=== PATIENT | female | born 1960 ===

== ENCOUNTER → 2021-06-21 | Outpatient (CLI) | payer OTHER ==
[~2021-06-21] MED LIST: AMLO-186 PO; BYSTOLIC2.5 MG PO; CYCL10TA2 PO; DULO20CA PO; ESZO3TAB28 PO; LORA2TAB89 PO; OXYC-325 PO; TRAZ300T2 PO
--- NOTE | 2021-06-21 12:39 | PDOC1 ---
INITIAL PAIN CONSULT DATE OF SERVICE: DOS: DATE: 06/21/21 TIME: 12:31 CHIEF COMPLAINT: Chief Complaint: Neck and left upper extremity pain HISTORY OF PRESENT ILLNESS: 61-year-old female presents with history of pain base the neck and left shoulder left upper extremity for about 3 years on and off in intensity patient reports no specific injury or accident that she is aware but had very active lifestyle over the years and is still active and weight lifting and exercise patient reports the pain is in the base the neck and the left shoulder left posterior deltoid scapular region into the forearm and into the hand with numbness and tingling in the thumb and first and second fingers on the left side patient reports extending more constant is aching and dull radiating numbness and tingling patient reports it wakes her from sleep least twice a night does not affect her bowel bladder control but does affect her ability walk occasionally patient reports has had trigger point injections also has had physical therapy and still doing therapy for this as well as massage therapies and does yoga 3 times a week with good stretching exercises as well patient is been taking ibup rofen which has not decreased the pain significantly also Percocet and that does decrease the pain to moderate extent patient has tried Tylenol as well which is not significantly decreasing the pain. Patient to continue to do the stretching strengthening and yoga as described. Patient reports her disability rating 0-10 10 being worst is a 7 with family home responsibilities recreation 6 with social activity 9 with occupation 5 with sexual behavior 8 with self-care activities and 6 with life support activities. Patient did have MRI scan of the cervical spine showing moderate to severe multilevel cervical spondylosis multilevel fac et arthrosis greatest at C4-5 and C5-6 with anterior subluxation of C5 on C6 disc base narrowing disc desiccation C4-5 C5-6 and C6-7 with left greater than right uncovertebral joint hypertrophy disc bulging causing effacement of the ventral thecal sac and narrowing the canal centrally at 9 mm left-sided neuroforaminal stenosis and effacement of the exiting left C6 nerve root at C5-6 level. C6-7 showing to space narrowing and disc osteophyte patient reports the pain is better with relaxing not using her left upper extremity such as avoiding reaching overhead or repetitive motions and weightbearing . Complex causing effacement of the ventral thecal sac. PAST MEDICAL HISTORY: PMH: Hypertension, Crohn's disease, gastroesophageal reflux, arthritis, kidney stones PREVIOUS SURGERIES: Past Surgical Hx: Appendectomy, left foot surgery, umbilical hernia repair x2, ureteral stents, bowel resection x2, partial thyroidectomy CURRENT MEDICATIONS: Current Meds: Active Scripts Medications Dose Route/Sig Max Daily Dose Days Date Category Cyclobenzaprine Hcl 10 Mg Tablet 1 Tab PO QHS 06/21/21 Reported Cymbalta (Duloxetine Hcl) 20 Mg Capsule.dr 1 Cap PO DAILY 06/21/21 Reported Ativan (Lorazepam) 2 Mg Tablet 2 Mg PO HS 06/21/21 Reported Bystolic (Nebivolol) 2.5 Mg Tablet 2.5 Mg PO DAILY 06/21/21 Reported Amlodipine Besylate 5 Mg Tablet 5 Mg PO DAILY 06/21/21 Reported Trazodone Hcl 300 Mg Tablet 1 Tab PO QHS 06/21/21 Reported Lunesta (Eszopiclone) 3 Mg Tablet 1 Tab PO PRN QHS PRN MDD 1 Tablet(s) 30 06/21/21 Reported Percocet 5-325 mg Tablet (Oxycodone HCl/Acetaminophen) 1 Each Tablet 1 Tab PO PRN TID PRN MDD 3 Tablet(s) 5 06/21/21 Reported ALLERGIES; Allergies: Coded Allergies: adalimumab (Verified Allergy, Severe, Head ache dizzyness, 06/21/21) infliximab (Verified Allergy, Severe, Anaphylaxis, 06/21/21) FAMILY HISTORY: Family Hx: Asthma COPD cancers ,diabetes, mental health issues SOCIAL HISTORY: Social Hx: Patient does not smoke does not drink not use any illegal illicit recreational drugs REVIEW OF SYSTEMS: ROS: Positive for those items mentioned in history of present illness, all systems are reviewed, otherwise negative ,and are complete full and well-documented on patient's chart. PHYSICAL EXAM: VS: Blood pressure is 154/107 pulse 87 respiration 16 temperature 98.7 F height is 60 inches weight is 223 pounds PE: PHYSICAL EXAMINATION: GENERAL: The patient is awake, alert, oriented, appropriate, very pleasant in demeanor HEENT: Shows normocephalic, atraumatic. Extraocular movements are intact and symmetrical. Oral cavity: Mucous membranes moist and pink. Dentition is intact. NECK: Shows anterior throat supple without palpable lymphadenopathy noted. Sw allow reflex symmetrical. CHEST: Shows normal on inspection. Breath sounds are clear bilaterally, distant but no rales rhonchi wheezes auscultated. HEART: Shows S1, S2 clear. No murmurs auscultated. ABDOMEN: Soft, nontender, nondistended, obese. No palpable organomegaly is noted. No rebound or guarding demonstrated. BACK: Shows spine grossly in the midline. Normal-appearing cervical lordotic curvature. Cervical paraspinous muscles show symmetrical with inspection, on palpation some moderate tenderness diffusely more in the left than the right inferior aspect of the cervical paraspinous muscles into the superior medial trapezius with very firm ropelike musculature in this region consistent with trigger point areas. Patient shows good rotation of motion of the cervical spine with significant tenderness with left lateral rotation as well as extension but not with forward flexion. Right side rotation is nontender. There is slightly increased thoracic kyphosis, some minor flattening of the lumbar lordotic curvature. EXTREMITIES: Upper extremities show deep tendon reflexes 2+ in the biceps and triceps tendons. Motor exam is 5 on a scale of 5 with right belt worker, biceps and triceps flexion and 4/5 on the left. Peripheral pulses are 2 radial. No peripheral edema is noted bilaterally. Shoulder shrug is strong and intact without loss of strength on resistance as is abduction of the shoulder 90 degrees without loss of strength on resistance. Upper extremities are warm and dry to touch, equal in color and appearance. SKIN: Shows warm and dry, good turgor. No edema. No sores, rashes or bruising throughout. IMPRESSION: Impression: 61-year-old female with 3-year history increasing pain base the neck left upper extremity radicular fashion following a C6-7 dermatomal distribution. MRI scan cervical spine as noted Crohn's disease Arthritis Hypertension Plan: Options were discussed with the patient including conservative management physical therapies interventional techniques. Patient like to pursue interventional techniques that she is currently doing yoga doing stretching strength he has done physical therapy is taking oral analgesics and anti- inflammatories without significant decrease in pain. We discussed a cervical epidural steroid injections description as well as anatomical models to describe the procedure. Patient will wait for preauthorization with her insurance provider, once this is obtained we will have her return for translaminar approach C6-7 level cervical epidural steroid injection with fluoroscopic guidance at that time. NINFA ROPER MD Jun 21, 2021 12:39
== END ==
LOC: PNCL 11:13
PROVIDERS: ATTEND Anesthesiology
DX: M79.622 Pain in left upper arm (principal); M54.2 Cervicalgia; I10 Essential (primary) hypertension; K21.9 Gastro-esophageal reflux disease without esophagitis; M19.90 Unspecified osteoarthritis, unspecified site; Z87.442 Personal history of urinary calculi; Z79.899 Other long term (current) drug therapy; E89.0 Postprocedural hypothyroidism; Z98.890 Other specified postprocedural states
CPT/HCPCS: 99214; G0463

== ENCOUNTER → 2021-07-07 | Outpatient (CLI) | payer OTHER ==
[~2021-07-07] MED LIST changes: +IOHEXOL 180 MG/ML 10 ML VIAL. ONE
--- NOTE | 2021-07-07 11:32 | PDOC ---
Progress Note - Pain Clinic Date of Service: DOS: DATE: 07/07/21 TIME: 11:28 Diagnosis: Dx: Cervical radiculopathy with cervical degenerative disc disease and cervical spinal stenosis History or Present Illness: HPI: 61-year-old female returns for follow-up status post evaluation and complains of pain base the neck and new finding of pain in both upper extremities now originally was only the left upper extremity patient reports is shifted over to the right and both are equally as painful with pain radiating to the posterior aspect of the neck into the shoulders into the posterior deltoid posterior triceps into the forearms and hands as well. Patient reports this came up on the right side over the past week or so without any specific injury patient rates her pain at 8 on scale 10 is worst 8 on average 7 its least and is a 7 today. Patient reports no new motor or sensory deficits but significant fati gability with reaching repetitive motions lifting items and weightbearing with the upper extremities. Patient scribes pain as burning and aching tight shooting and can be severe with activity. Patient reports awakening from sleep still multiple times throughout the night laying on the right or left side disturbs sleep. Physical Exam: VS: Blood pressure is 137/91 pulse 78 respirations 18 temperature 97.8 F weight is 223 pounds PE: PHYSICAL EXAMINATION: GENERAL: The patient is awake, alert, oriented, appropriate, very pleasant in demeanor HEENT: Shows normocephalic, atraumatic. Extraocular movements are intact and symmetrical. Oral cavity: Mucous membranes moist and pink. NECK: Shows anterior throat supple without palpable lymphadenopathy noted. Swallow reflex symmetrical. CHEST: Shows normal on inspection. Breath sounds are clear bilaterally, no rales or. HEART: Shows S1, S2 clear. No murmurs auscultated. ABDOMEN: Soft, nontender, nondistended, obese. No palpable organomegaly is noted. BACK: Shows spine grossly in the midline. Normal-appearing cervical lordotic curvature. Cervical paraspinous muscles show symmetrical inspection, on palpation some moderate tenderness diffusely throughout the upper and lower and middle distribution of the paraspinous muscles right equal to left without specific trigger points without atrophy hypertrophy. Patient shows full rotation motion cervical spine both laterally as well as full extension full forward flexion without significant decrease in pain. There is slightly increased thoracic kyphosis, some minor flattening of the lumbar lordotic curvature. EXTREMITIES: Upper extremities show deep tendon reflexes 2+ in the steps and triceps tendons. Motor exam is 5 on a scale of 5 with right silver plater strength, biceps and triceps flexion and 4/5 on the left. Peripheral pulses are 2+ radial. No peripheral edema is noted bilaterally. Upper extremities are warm and dry to touch, equal in color and appearance. SKIN: Shows warm and dry, good turgor. No edema. No sores, rashes or bruising throughout. Procedure: Procedure: Options were discussed with the patient. Patient's old chart was reviewed his current medication regimen updated current review of systems updated today as well. We will proceed with cervical epidural steroid injection today with fluoroscopic guidance. Risks were discussed including but not limited to: Bleeding, infection, possibility of epidural hematoma and subsequent neurological compromise, dural puncture, headaches, spinal cord and/or nerve damage, side effects of steroid medication, and poor results regarding pain control. Patient understands and wished to proceed. Patient will return to the clinic in approximately 2 weeks for follow-up, was counseled as to return appointment, activity level, and side effects be aware of. Medication Injected: Med Injected: Procedure cervical epidural steroid injection at the C6-7 level, using local anesthetic under sterile prep and drape using C-arm fluoroscopic guidance under local anesthesia medications injected ;120 mg Depo-Medrol +5 mL normal saline and 2 mL contrast; condition at discharge is stable patient tolerated procedure well. and had no complications Condition at Discharge: Condition at Discharge: Condition at discharge stable, patient tolerated the procedure well and had no complications. NINFA ROPER MD Jul 07, 2021 11:32
--- NOTE | 2021-07-07 11:32 | PDOC4 ---
Procedure Note: ICD 10 Code: ICD 10 Code: M54.12 M4 8.02 M50.30 Procedure Note: Patient was consented for cervical epidural steroid injection with fluoroscopic guidance. Risks were discussed including but not limited to: Bleeding, infection, possibility of epidural hematoma and subsequent neurological compromise, dural puncture, headaches, spinal cord and/or nerve damage, side effects of steroid medication, and poor results regarding pain control. Patient understands and wished to proceed. Procedure cervical epidural steroid injection at the C6-7 level, using local anesthetic under sterile prep and drape using C-arm fluoroscopic guidance under local anesthesia medications injected ;120 mg Depo-Medrol +5 mL normal saline and 2 mL contrast; condition at discharge is stable patient tolerated procedure well. and had no complications NINFA ROPER MD Jul 07, 2021 11:32
== END | disposition home or self-care (01) ==
LOC: PNCL 10:53
PROVIDERS: ATTEND Anesthesiology
DX: M50.10 Cervical disc disorder with radiculopathy, unspecified cervical region (principal); M48.02 Spinal stenosis, cervical region; Z79.899 Other long term (current) drug therapy; Z98.890 Other specified postprocedural states; Z88.8 Allergy status to other drugs, medicaments and biological substances
CPT/HCPCS: 62321; Q9965; 62323

== ENCOUNTER → 2021-07-21 | Outpatient (CLI) | payer OTHER ==
[~2021-07-21] MED LIST changes: -IOHEXOL 180 MG/ML 10 ML VIAL. ONE
--- NOTE | 2021-07-21 11:09 | PDOC ---
Progress Note - Pain Clinic Date of Service: DOS: DATE: 07/21/21 TIME: 11:02 Diagnosis: Dx: Cervical radiculopathy with cervical degenerative disease and cervical spinal stenosis History or Present Illness: HPI: 61-year-old female returns for follow-up status post cervical epidural steroid action x1. Patient reports about 75% improvement initially down about 50% improvement after about 2 weeks patient reports still about 50% improved overall and base the neck and shoulders much better on the right than the left with the right side becoming much more strong left side still with some significant fatigability and pain remaining. Patient reports is radiating constant base the neck and shoulders more on the left than the right and tight sensation in the neck as well patient reports about 8 on scale 10 is worse over the past week 7 on average for its least is a 4 today. Patient reports no motor deficits. Physical Exam: VS: Blood pressure is 154/91 pulse 76 respirations 18 temperature 98.6 F height is 60 inches weight is 218 pounds PE: PHYSICAL EXAMINATION: GENERAL: The patient is awake, alert, oriented, appropriate, very pleasant in demeanor HEENT: Shows normocephalic, atraumatic. Extraocular movements are intact and symmetrical. Oral cavity: Mucous membranes moist and pink. Dentition is intact. NECK: Shows anterior throat supple without palpable lymphadenopathy noted. Swallow reflex symmetrical. CHEST: Shows normal on inspection. Breath sounds are clear bilaterally, no rales or rhonchi. HEART: Shows S1, S2 clear. No murmurs auscultated. ABDOMEN: Soft, nontender, nondistended,. No palpable organomegaly is noted. BACK: Shows spine grossly in the midline. Normal-appearing cervical lordotic curvature. Cervical paraspinous muscles show symmetrical inspection, palpation some moderate tenderness diffusely in the inferior aspect of the cervical paraspinous musculature bilaterally but without specific trigger points without radiation. Patient has full rotation motion cervical spine both laterally as well as extension and flexion without significant difficulty. There is slightly increased thoracic kyphosis, some minor flattening of the lumbar lordotic curvature. EXTREMITIES: Upper extremities show deep tendon reflexes 2+ in the biceps and triceps tendons. Motor exam is 5 on a scale of 5 with right upper, biceps and triceps flexion and 4/5 on the left. Peripheral pulses are 2+ radial. No peripheral edema is noted bilaterally. Upper extremities are warm and dry to touch, equal in color and appearance. SKIN: Shows warm and dry, good turgor. No edema. No sores, rashes or bruising throughout. Procedure: Procedure: Options were discussed with the patient. Patient chart reviews her current medication regimen updated current review of systems updated today as well. We will preauthorize patient for a second cervical epidural to injection she still has significant radicular pain in the C6-7 dermatomal distribution better on the right but still significant and persistent on the left upper extremity. Patient will continue with stretching and strength exercises as well as conditioning exercises and will have her return once authorization is obtained for translaminar approach C6-7 level cervical epidural steroid injection with fluoroscopic guidance at that time. Medication Injected: Med Injected: None Condition at Discharge: Condition at Discharge: Condition at discharge is stable. NINFA ROPER MD Jul 21, 2021 11:09
== END ==
LOC: PNCL 10:19
PROVIDERS: ATTEND Anesthesiology
DX: M50.123 Cervical disc disorder at C6-C7 level with radiculopathy (principal); M48.02 Spinal stenosis, cervical region
CPT/HCPCS: 99212; G0463

== ENCOUNTER → 2021-08-04 | Outpatient (CLI) | payer OTHER ==
[~2021-08-04] MED LIST changes: +IOHEXOL 180 MG/ML 10 ML VIAL. ONE; +methylPREDNISolone ACETATE 80 MG/ML VIAL. ONE
--- NOTE | 2021-08-04 12:37 | PDOC ---
Progress Note - Pain Clinic Date of Service: DOS: DATE: 08/04/21 TIME: 12:33 Diagnosis: Dx: Cervical radiculopathy with cervical degenerative disc disease and cervical spinal stenosis History or Present Illness: HPI: 61-year-old female returns for follow-up status post cervical epidural steroid injection x1 patient reports she did very well at 75% improved initially but then down about 50% provement overall the pain in the base of the neck and shoulders right slightly worse than left now patient reports still significant p ain base the neck and shoulders but her mobility is much better as is fatigability is decreased to some extent in both the upper extremities patient reports that the left side is not as equal as the right side now with right side traditionally was more painful. Patient rates the pain as 8 on scale 10 is worse over the past week 6 on average 5 its least is a 5 today patient ports s harp and tight radiating in the base the neck and shoulders as well as the upper extremities again left now somewhat equal to the right side but the arms are much better than the shoulders. Patient reports she is to increase her activity with doing distance walking and household activities travel with greater ease and comfort sleeping better at night as well. Physical Exam: VS: Blood pressure is 140/100 pulse 84 respirations 16 temperature 97 Fahrenheit weight is 216 pounds PE: PHYSICAL EXAMINATION: GENERAL: The patient is awake, alert, oriented, appropriate, very pleasant in demeanor HEENT: Shows normocephalic, atraumatic. Extraocular movements are intact and symmetrical. Oral cavity: Mucous membranes moist and pink. Dentition is intact. NECK: Shows anterior throat supple without palpable lymphadenopathy noted. Swallow reflex symmetrical. CHEST: Shows normal on inspection. Breath sounds are clear bilaterally, distant but no rales or rhonchi. HEART: Shows S1, S2 clear. No murmurs auscultated. ABDOMEN: Soft, nontender, nondistended, obese. No palpable organomegaly is note d. BACK: Shows spine grossly in the midline. Normal-appearing cervical lordotic curvature. Cervical paraspinous muscles show symmetrical on inspection, with range of motion, patient shows good lateral rotation right and left as well as full extension full forward flexion without significant difficulty or pain reported. There is slightly increased thoracic kyphosis. EXTREMITIES: Upper extremities show deep tendon reflexes 2+ in the biceps and triceps tendons. Motor exam is 5 on a scale of 5 with right core rescuer, biceps and triceps flexion and 4/5 on the left. Peripheral pulses are 2+ radial. No peripheral edema is noted bilaterally. Upper extremities are warm and dry to touch, equal in color and appearance. SKIN: Shows warm and dry, good turgor. No edema. No sores, rashes or bruising throughout. Procedure: Procedure: Options were discussed with patient. Patient chart was reviewed as her current medication regimen updated current view of systems updated today as well. Proceed with a cervical epidural steroid injection today with fluoroscopic guidance. Risks were discussed including but not limited to: Bleeding, infection, possibility of epidural hematoma and subsequent neurological compromise, dural puncture, headaches, spinal cord and/or nerve damage, side effects of steroid medication, and poor results regarding pain control. Patient understands and wished to proceed. Patient will return to clinic in approximate 2 weeks for follow-up, was counseled as return appointment, activity, and side effect to be aware of. Medication Injected: Med Injected: Procedure cervical epidural steroid injection at the C6-7 level, using local anesthetic under sterile prep and drape using C-arm fluoroscopic guidance under local anesthesia medications injected ;120 mg Depo-Medrol +5 mL normal saline and 2 mL contrast; condition at discharge is stable patient tolerated procedure well. and had no complications Condition at Discharge: Condition at Discharge: Condition at discharge stable, pain tolerated procedure well and had no complications. NINFA ROPER MD Aug 04, 2021 12:37
--- NOTE | 2021-08-04 12:37 | PDOC4 ---
Procedure Note: ICD 10 Code: ICD 10 Code: M54.12 M4 8.02 M50.30 Procedure Note: Patient was consented for a cervical epidural steroid injection with fluoroscopic guidance. Risks were discussed including but not limited to: Bleeding, infection, possibility of epidural hematoma and subsequent neurological compromise, dural puncture, headaches, spinal cord and/or nerve damage, side effects of steroid medication, and poor results regarding pain control. Patient understands and wished to proceed. Procedure cervical epidural steroid injection at the C6-7 level, using local anesthetic under sterile prep and drape using C-arm fluoroscopic guidance under local anesthesia medications injected ;120 mg Depo-Medrol +5 mL normal saline and 2 mL contrast; condition at discharge is stable patient tolerated procedure well. and had no complications NINFA ROPER MD Aug 04, 2021 12:37
== END | disposition home or self-care (01) ==
LOC: PNCL 11:19
PROVIDERS: ATTEND Anesthesiology
DX: M50.10 Cervical disc disorder with radiculopathy, unspecified cervical region (principal); M48.02 Spinal stenosis, cervical region; Z79.899 Other long term (current) drug therapy; Z88.8 Allergy status to other drugs, medicaments and biological substances
CPT/HCPCS: 62321; J1040; Q9965

== ENCOUNTER → 2021-09-19 | Outpatient (CLI) | payer OTHER ==
[~2021-09-19] MED LIST changes: +CYCL10TA19 PO; -CYCL10TA2 PO; -IOHEXOL 180 MG/ML 10 ML VIAL. ONE; -methylPREDNISolone ACETATE 80 MG/ML VIAL. ONE
--- NOTE | 2021-09-19 12:07 | PDOC ---
Progress Note - Pain Clinic Date of Service: DOS: DATE: 09/19/21 TIME: 12:02 Diagnosis: Dx: Cervical radiculopathy with cervical degenerative disease and cervical spinal stenosis History or Present Illness: HPI: 61-year-old female returns for follow-up status post cervical epidural steroid injection last seen August 04, 2021. Patient reports he did very well about 80% improvement after the first 6 weeks and the pain began to return about a week ago with pain in the base the neck and the left shoulder upper extremity a rm into the forearm biceps into the hand on the left side patient ports some numbness and tingling as well radiating pain stabbing sharp dull tight alternating at the base the neck as well as type pain which is shooting to the arm we called a Medrol Dosepak in for her few weeks ago which did help decrease the pain but is to come back now with radiating pain into the left upper extr emity patient rates the pain a 9 on scale 10 is worse over the past week 7 on average/and is a 7 today. Patient ports worse with repetitive motions reaching reaching above her head with her left arm lifting forward with repetitive activity and weightbearing as well. Patient ports he continues to workout regularly doing stretching strength exercise also doing yoga with the shoulders neck and upper back and arms which seems to help does not decrease the pain significantly patient reports is better with resting laying down generally does not awaken her from sleep at night. Physical Exam: VS: Blood pressure is 144/94 pulse 105 respirations 18 temperature is 98.2 F height is 60 inches weight is 213 pounds PE: PHYSICAL EXAMINATION: GENERAL: The patient is awake, alert, oriented, appropriate, very pleasant demeanor HEENT: Shows normocephalic, atraumatic. Extraocular movements are intact and symmetrical. Oral cavity: Mucous membranes moist and pink. Dentition is intact. NECK: Shows anterior throat supple without palpable lymphadenopathy noted. Swallow reflex symmetrical. CHEST: Shows normal on inspection. Breath sounds are clear bilaterally, no rales or rhonchi. HEART: Shows S1, S2 clear. No murmurs auscultated. ABDOMEN: Soft, nontender, nondistended, obese. No palpable organomegaly is noted. BACK: Shows spine grossly in the midline. Normal-appearing cervical lordotic curvature. Cervical paraspinous muscles show symmetrical inspection, on palpation some moderate tenderness diffusely bilaterally diffusely without significant radiation. Patient shows good rotation motion cervical spine the slightly guarded with left lateral rotation as well as extension but not with forward flexion. There is slightly increased thoracic kyphosis, some minor flattening of the lumbar lordotic curvature. EXTREMITIES: Upper extremities show deep tendon reflexes 2+ in the biceps and triceps tendons. 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 Peripheral pulses are 2+ radial. No peripheral edema is noted bilaterally. Upper extremities are warm and dry to touch, equal in color and appearance. SKIN: Shows warm and dry, good turgor. No edema. No sores, rashes or bruising throughout. Procedure: Procedure: Options discussed with patient. Patient's old chart was reviewed, her current medication regimen updated current review of systems updated today as well. We will preauthorize patient for cervical epidural steroid injection still has clinical radiculopathy in C6-7 dermatomal distribution on the left. 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 Patient taking Tylenol p.o. as she cannot take nonsteroidals secondary to kidney disease. Once approved, we will have patient return for cervical epidural steroid injection with fluoroscopic guidance at the C6-7 level translaminar approach. Medication Injected: Med Injected: None Condition at Discharge: Condition at Discharge: Condition at discharge is stable. NINFA ROPER MD Sep 19, 2021 12:07
== END | disposition home or self-care (01) ==
LOC: PNCL 11:35
PROVIDERS: ATTEND Anesthesiology
DX: M50.10 Cervical disc disorder with radiculopathy, unspecified cervical region (principal); M48.02 Spinal stenosis, cervical region; Z79.899 Other long term (current) drug therapy; Z88.8 Allergy status to other drugs, medicaments and biological substances
CPT/HCPCS: 99212; G0463

== ENCOUNTER → 2021-10-07 | Outpatient (CLI) | payer OTHER ==
[~2021-10-07] MED LIST changes: +IOHEXOL 180 MG/ML 10 ML VIAL. ONE; +methylPREDNISolone ACETATE 40 MG/ML VIAL. ONE; +methylPREDNISolone ACETATE 80 MG/ML VIAL. ONE
--- NOTE | 2021-10-07 13:45 | PDOC ---
Progress Note - Pain Clinic Date of Service: DOS: DATE: 10/07/21 TIME: 13:41 Diagnosis: Dx: Cervical radiculopathy with cervical degenerative disease and cervical spinal stenosis History or Present Illness: HPI: 61-year-old female returns for follow-up status post cervical epidural steroid injection x2. Patient reports about 80% improvement initially now down to about 60% improvement in the base the neck and left shoulder patient reports new pain of right sided shoulder pain and twitching in the left hand which was not pre sent previously she notices it when she is typing which she will type and extra letter when she gets twitching her left hand does not happen often but happens at least once a day patient reports her pain is 8 on scale 10 is worse over the past week 6 on average for its least and is a 6 today patient drives a sharp and dull alternating the neck tight and shooting stabbing in the left arm radiating and severe can be in the right shoulder as well as the right arm occasionally over the past week or so but is not been persistent and is not as painful as the left side. Physical Exam: VS: Blood pressure is 142/78 pulse 76 respirations 18 temperature 0.4 F height is 5 foot 1 his weight is 210 pounds PE: PHYSICAL EXAMINATION: GENERAL: The patient is awake, alert, oriented, appropriate, very pleasant in demeanor HEENT: Shows normocephalic, atraumatic. Extraocular movements are intact and symmetrical. Oral cavity: Mucous membranes moist and pink. Dentition is intact. NECK: Shows anterior throat supple without palpable lymphadenopathy noted. Swallow reflex symmetrical. CHEST: Shows normal on inspection. Breath sounds are clear bilaterally. HEART: Shows S1, S2 clear. No murmurs auscultated. ABDOMEN: Soft, nontender, nondistended. No palpable organomegaly is noted. BACK: Shows spine grossly in the midline. Normal-appearing cervical lordotic curvature. Cervical paraspinous muscles show symmetrical with inspection, palpation some moderate tenderness diffusely bilaterally diffusely without significant radiation. Patient shows full rotation about the cervical spine both laterally with some moderate tenderness with left lateral rotation past 45 degrees but not right full extension full forward flexion without difficulty. There is slightly increased thoracic kyphosis, some minor flattening of the lumbar lordotic curvature. EXTREMITIES: Upper extremities show deep tendon reflexes 2+ in the biceps and triceps tendons. Motor exam is 5 on a scale of 5 with right park police, biceps and triceps flexion and 4/5 on the left. Peripheral pulses are 1+ radial. No peripheral edema is noted bilaterally. Upper extremities are warm and dry to touch, equal in color and appearance. SKIN: Shows warm and dry, good turgor. No edema. No sores, rashes or bruising throughout. Procedure: Procedure: Options were discussed with the patient. Patient chart was reviewed his current medication regimen updated current review of systems updated today as well. We will proceed with a cervical epidural steroid injection today with fluoroscopic guidance. Risks were discussed including but not limited to: Bleeding, infection, possibility of epidural hematoma and subsequent neurological compromise, dural puncture, headaches, spinal cord and/or nerve damage, side effects of steroid medication, and poor results regarding pain control. Patient understands and wished to proceed. Patient return to clinic in approximate 2 weeks for follow-up, was counseled as to return appointment, activity level, and side effect to be aware of. Medication Injected: Med Injected: Procedure cervical epidural steroid injection at the C6-7 level, using local anesthetic under sterile prep and drape using C-arm fluoroscopic guidance under local anesthesia medications injected ;120 mg Depo-Medrol +5 mL normal saline and 2 mL contrast; condition at discharge is stable patient tolerated procedure well. and had no complications Condition at Discharge: Condition at Discharge: Condition at discharge stable, pain tolerated the procedure well and had no complications. NINFA ROPER MD Oct 07, 2021 13:45
--- NOTE | 2021-10-07 13:45 | PDOC4 ---
Procedure Note: ICD 10 Code: ICD 10 Code: M54.12 M50.30 M4 8.02 Procedure Note: Patient was consented for cervical epidural steroid injection with fluoroscopic guidance. Risks were discussed including but not limited to: Bleeding, infection, possibility of epidural hematoma and subsequent neurological compromise, dural puncture, headaches, spinal cord and/or nerve damage, side effects of steroid medication, and poor results regarding pain control. Patient understands and wished to proceed. Procedure cervical epidural steroid injection at the C6-7 level, using local a nesthetic under sterile prep and drape using C-arm fluoroscopic guidance under local anesthesia medications injected ;120 mg Depo-Medrol +5 mL normal saline and 2 mL contrast; condition at discharge is stable patient tolerated procedure well. and had no complications NINFA ROPER MD Oct 07, 2021 13:45
== END | disposition home or self-care (01) ==
LOC: PNCL 13:04
PROVIDERS: ATTEND Anesthesiology
DX: M50.10 Cervical disc disorder with radiculopathy, unspecified cervical region (principal); M48.02 Spinal stenosis, cervical region; Z79.899 Other long term (current) drug therapy; Z88.8 Allergy status to other drugs, medicaments and biological substances
CPT/HCPCS: 62321; J1030; J1040; Q9965